=== PATIENT | male | born 1975 | race Two or more races ===

== ENCOUNTER 2020-06-04 14:21 | Emergency (ER) | payer OTHER ==
[~2020-06-04] VITALS: Ht 165.1 cm; Wt 102.0 kg
[2020-06-04] MEDS ORDERED: ASPIRIN 325 MG TABLET PO ONE (14:45)
[2020-06-04] MEDS ORDERED: NITROGLYCERIN SUBLINGUAL 0.4 MG BOTTLE OF 25. SL PRN (14:45)
--- NOTE | 2020-06-04 14:49 | EKG ---
[facility] [address] [place] [address] Test Date: 2020-06-04 Test Time: 14:43:19 Pat Name: YAMILETH YUEN Department: Room: Gender: [employer] Director: : 1975 Requested By: CRUZITO CHRISTOPHER Order Number: [id number] Reading MD: Measurements Intervals [place] Rate: 79 P: 49 ID: [id number] QRS: 2 QRSD: 94 T: 28 QT: 382 QTc: 439 Interpretive Statements SINUS RHYTHM NORMAL ECG RI6.02 No previous ECG available for comparison
--- NOTE | 2020-06-04 15:10 | RAD ---
INDICATION: Reason: chest pain lt side per pt. / Spl. Instructions: / History: COMPARISON: February 2009 FINDINGS: Single view of chest obtained. No definite focal airspace consolidation. Cardiac silhouette is unremarkable given portable technique . IMPRESSION: * No focal airspace consolidation or edema. Electronically signed by: Sameer Edmondson MD (06/04/2020 3:07 PM) [id number]
[2020-06-04] MEDS: MORPHINE SULFATE 4 MG/ML VIAL. IV/SQ PRN ×2 (15:24→19:42)
[2020-06-04 15:35] LABS: BASO # 0.1 x10^3/uL (0.0-0.2); BASO % 1 % (0-3); EOS # 0.2 x10^3/uL (0.0-0.7); EOS % 2 % (0-3); HEMATOCRIT 45.1 % (39.0-53.0); HEMOGLOBIN 14.7 g/dL (13.0-17.5); LYMPH # 2.2 x10^3/uL (1.0-4.8); LYMPH % 24 % (24-48); MEAN CORPUSCULAR HEMOGLOBIN 27 pg (25-35); MEAN CORPUSCULAR HGB CONC 33 g/dL (31-37); MEAN CORPUSCULAR VOLUME 84 fL (79-100); MONO # 0.8 x10^3/uL (0.0-1.1); MONO % 8 % (0-9); NEUT # 6.1 x10^3/uL (1.8-7.7); NEUT % 66 % (31-73); PLATELET COUNT 287 x10^3/uL (140-400); RED BLOOD COUNT 5.37 x10^6/uL (4.30-5.70); RED CELL DISTRIBUTION WIDTH 16.1 % (11.5-14.5); WHITE BLOOD COUNT 9.4 x10^3/uL (4.0-11.0)
[2020-06-04 15:49] LABS: D-DIMER < 0.27 ug/mlFEU (0.00-0.50)
[2020-06-04 15:56] LABS: CALCIUM 8.8 mg/dL (8.5-10.1); CREATININE 0.9 mg/dL (0.7-1.3); GFR 90.4; POTASSIUM 3.6 mmol/L (3.5-5.1)
[2020-06-04 16:05] LABS: ALBUMIN 3.8 g/dL (3.4-5.0); TOTAL BILIRUBIN 0.7 mg/dL (0.2-1.0); TOTAL PROTEIN 7.5 g/dL (6.4-8.2)
--- NOTE | 2020-06-04 16:53 | PDOC2 ---
AFIA ALVARADO LINING FINISHER 06/04/20 1653: CARDIAC CONSULT DATE OF CONSULT Date of Consult DATE: 06/04/20 TIME: 16:43 REASON FOR CONSULT Reason for Consult: Chest pain REFERRING PHYSICIAN Referring Physician: Bayron SOURCE Source: Chart review, Patient HISTORY OF PRESENT ILLNESS HISTORY OF PRESENT ILLNESS This is a pleasant 45 yo male admitted for complains of chest pain. Reports this as sharp and reproducible with palpation and deep breahing. This is mainly left lower sternal region. No SOA. No associated n/v. No anosmia, intractable coughing or ageusia. No fever or chills. No prior covid-19 exposure. Denies any CAD, VTE. He does take norvasc and intermittent ASA. 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 Denies any pain or SOA in relation to this. Had sexual activity 2 weeks ago with no CP nor SOA. No recent falls or injury. He does smoke tobacco but recreational drugs. does reports apnea episodes while asleep at night. No PND, orthopnea or any peripheral edema. PAST MEDICAL HISTORY Cardiovascular: HTN Pulmonary: No pertinent hx CENTRAL NERVOUS SYSTEM: Other (No pertinent history) GI: GERD Heme/Onc: No pertinent hx Hepatobiliary: No pertinent hx Psych: No pertinent hx Musculoskeletal: Osteoarthritis Rheumatologic: No pertinent hx Infectious disease: No pertinent hx ENT: No pertinent hx Renal/: No pertinent hx Endocrine: No pertinent hx Dermatology: No pertinent hx PAST SURGICAL HISTORY Past Surgical History: No pertinent history FAMILY HISTORY Family History noncontributory to CV SOCIAL HISTORY Smoke: 1 pack per day (>30 yrs) ALCOHOL: occassional Drugs: None Lives: with Family CURRENT MEDICATIONS CURRENT MEDICATIONS Current Medications Medications (Trade) Dose Ordered Sig/Smith Route PRN Reason Start Time Stop Time Status Last Admin Dose Admin Aspirin (Luis E Aspirin) 325 mg 1X ONCE PO 06/04/20 14:45 06/04/20 14:51 DC 06/04/20 15:23 Morphine Sulfate (Morphine Sulfate) 4 mg PRN Q15MIN PRN IV/SQ PAIN GREATER THAN 3/10 06/04/20 14:45 06/05/20 14:44 06/04/20 15:24 ALLERGIES ALLERGIES: Coded Allergies: Penicillins (Verified Allergy, Mild, Swelling, 06/04/20) ROS Review of System 14 point ROS evaluated with pertinent positives noted per HPI PHYSICAL EXAM General: Alert, Oriented X3, Cooperative, No acute distress HEENT: Atraumatic, Mucous membr. moist/pink Lungs: Clear to auscultation, Normal air movement Heart: Regular rate (SR), Normal S1, Normal S2, No murmurs Abdomen: Soft, No tenderness, Other (truncal obesity) Extremities: No cyanosis, No edema Skin: No breakdown, No significant lesion Neuro: Normal speech, Sensation intact Psych/Mental Status: Mental status NL, Mood NL MUSCULOSKELETAL: Osteoarthritic changes both hands VITALS/I&O VITALS/I&O: Vital Signs Date Time Temp Pulse Resp B/P (MAP) Pulse Ox O2 Delivery O2 Flow Rate FiO2 06/04/20 14:50 98.6 75 20 130/80 (97) 97 Room Air 98.6 LABS Lab: Laboratory Tests Test 06/04/20 15:10 White Blood Count 9.4 x10^3/uL (4.0-11.0) Red Blood Count 5.37 x10^6/uL (4.30-5.70) Hemoglobin 14.7 g/dL (13.0-17.5) Hematocrit 45.1 % (39.0-53.0) Mean Corpuscular Volume 84 fL (79-100) Mean Corpuscular Hemoglobin 27 pg (25-35) Mean Corpuscular Hemoglobin Concent 33 g/dL (31-37) Red Cell Distribution Width 16.1 % (11.5-14.5) H Platelet Count 287 x10^3/uL (140-400) Neutrophils (%) (Auto) 66 % (31-73) Lymphocytes (%) (Auto) 24 % (24-48) Monocytes (%) (Auto) 8 % (0-9) Eosinophils (%) (Auto) 2 % (0-3) Basophils (%) (Auto) 1 % (0-3) Neutrophils # (Auto) 6.1 x10^3/uL (1.8-7.7) Lymphocytes # (Auto) 2.2 x10^3/uL (1.0-4.8) Monocytes # (Auto) 0.8 x10^3/uL (0.0-1.1) Eosinophils # (Auto) 0.2 x10^3/uL (0.0-0.7) Basophils # (Auto) 0.1 x10^3/uL (0.0-0.2) Prothrombin Time 13.0 SEC (11.7-14.0) Prothrombin Time INR 1.0 (0.8-1.1) D-Dimer (Sherry) < 0.27 ug/mlFEU Sodium Level 140 mmol/L (136-145) Potassium Level 3.6 mmol/L (3.5-5.1) Chloride Level 102 mmol/L (98-107) Carbon Dioxide Level 26 mmol/L (21-32) Anion Gap 12 (6-14) Blood Urea Nitrogen 13 mg/dL (8-26) Creatinine 0.9 mg/dL (0.7-1.3) Estimated GFR (Cockcroft-Gault) 90.4 BUN/Creatinine Ratio 14 (6-20) Glucose Level 74 mg/dL (70-99) Calcium Level 8.8 mg/dL (8.5-10.1) Magnesium Level 2.0 mg/dL (1.8-2.4) Total Bilirubin 0.7 mg/dL (0.2-1.0) Aspartate Amino Transferase (AST) 20 U/L (15-37) Alanine Aminotransferase (ALT) 31 U/L (16-63) Alkaline Phosphatase 106 U/L (46-116) Troponin I Quantitative < 0.017 ng/mL (0.000-0.055) OZ-Nwh-U-Type Natriuretic Peptide 86 pg/mL (0-124) Total Protein 7.5 g/dL (6.4-8.2) Albumin 3.8 g/dL (3.4-5.0) Albumin/Globulin Ratio 1.0 (1.0-1.7) Thyroid Stimulating Hormone (TSH) 0.980 uIU/mL (0.358-3.74) Laboratory Tests 06/04/20 15:10 Laboratory Tests 06/04/20 15:10 ASSESSMENT/PLAN ASSESSMENT/PLAN 1. Atypical chest pain: suspect costochondritis. trop nml EKG SR without acute EKG changes. Doubt ACS. Very good METS 2. HTN: controlled 3. Suspect MADELAINE 4. Suspect COPD with tobaccoism 5 Obesity Recommendations 1. Continue home norvasc. 2. Smoking cessation. Will need outpt MADELAINE workup 3. Lidoderm to chest. May use NSAIDs with his home PPI 4. May DC if the next trop is negative. MADI OCONNOR MD 06/04/201810: CARDIAC CONSULT ASSESSMENT/PLAN ASSESSMENT/PLAN Patient seen and examined I agree with our nurse practitioners assessment as above. Atypical chest pain. No acute ischemic EKG changes. Trending troponin. Pain is most consistent with musculoskeletal pain. Hypertension. Controlled. Continue present treatment. COPD. Discontinue tobacco. Continue other present medications. AFIA ALVARADO APRN Jun 04, 2020 16:53 MADI OCONNOR MD Jun 04, 2020 18:11
[2020-06-04] MEDS ORDERED: LIDOCAINE (700MG/PATCH) PATCH. TD SCH (17:00)
--- NOTE | 2020-06-04 19:39 | PHYS DOC ---
Past Medical History Past Medical History: Hypertension Past Surgical History: No Surgical History Smoking Status: Current Every Day Smoker Alcohol Use: Occasionally General Adult EDM: Chief Complaint: CHEST PAIN HPI: HPI: Patient is a 45 year old male with history of hypertension presenting today complaining of 7 out of 10 sharp intermittent left-sided chest pain on inspiration and coughing, symptoms began at 5 AM this morning, patient denies chest pain working him up. He states he tried taking nitroglycerin with slight relief. Denies any fever, denies any concerns for COVID-19. Review of Systems: Review of Systems: Constitutional: Denies fever or chills. [] Eyes: Denies change in visual acuity. [] HENT: Denies nasal congestion or sore throat. [] Respiratory: Reports cough, denies shortness of breath. [] Cardiovascular: Reports left-sided chest pain GI: Denies abdominal pain, nausea, vomiting, bloody stools or diarrhea. [] : Denies dysuria. [] Musculoskeletal: Denies back pain or joint pain. [] Integument: Denies rash. [] Neurologic: Denies headache, focal weakness or sensory changes. [] Psychiatric: Denies depression or anxiety. [] Heart Score: HEART Score for Chest Pain: HEART Score for Chest Pain Response (Comments) Value History Slighlty/Non-Suspicious 0 ECG Normal 0 Age >45 - < 65 1 Risk Factors 1 or 2 Risk Factors 1 Troponin < Normal Limit 0 Total 2 Risk Factors: Risk Factors: DM, Current or recent (<one month) smoker, HTN, HLP, family history of CAD, obesity. Risk Scores: Score 0 - 3: 2.5% MACE over next 6 weeks - Discharge Home Score 4 - 6: 20.3% MACE over next 6 weeks - Admit for Clinical Observation Score 7 - 10: 72.7% MACE over next 6 weeks - Early Invasive Strategies Current Medications: Current Medications Medications (Trade) Dose Ordered Sig/Smith Start Time Stop Time Status Last Admin Dose Admin Aspirin (Luis E Aspirin) 325 mg 1X ONCE 06/04/20 14:45 06/04/20 14:51 DC 06/04/20 15:23 325 MG Lidocaine (Lidoderm) 1 patch DAILY 06/04/20 17:00 06/04/20 17:03 1 PATCH Miscellaneous (Lidoderm Patch Removal) 1 ea QHS 06/04/20 21:00 Morphine Sulfate (Morphine Sulfate) 4 mg PRN Q15MIN PRN 06/04/20 14:45 06/05/20 14:44 06/04/20 15:24 4 MG Nitroglycerin (Nitrostat) 0.4 mg PRN Q5MIN PRN 06/04/20 14:45 06/05/20 14:44 Allergies: Allergies: Allergies Coded Allergies Type Severity Reaction Last Updated Verified Penicillins Allergy Mild Swelling 06/04/20 Yes Physical Exam: PE: Constitutional: Well developed, well nourished, no acute distress, non-toxic appearance. [] HENT: Normocephalic, atraumatic, bilateral external ears normal, oropharynx moist, no oral exudates, nose normal. [] Eyes: PERRLA, EOMI, conjunctiva normal, no discharge. [] Neck: Normal range of motion, no tenderness, supple, no stridor. [] Cardiovascular:Heart rate regular rhythm, no murmur, reproducible chest pain on deep breaths Lungs & Thorax: Bilateral breath sounds clear to auscultation [] Abdomen: Bowel sounds normal, soft, no tenderness, no masses, no pulsatile masses. [] Skin: Warm, dry, no erythema, no rash. [] Back: No tenderness, no CVA tenderness. [] Extremities: No tenderness, no cyanosis, no clubbing, ROM intact, no edema. [] Neurologic: Alert and oriented X 3, normal motor function, normal sensory function, no focal deficits noted. [] Psychologic: Affect normal, judgement normal, mood normal. [] Current Patient Data: Labs: Laboratory Tests Test 06/04/20 15:10 06/04/20 18:43 White Blood Count 9.4 x10^3/uL (4.0-11.0) Red Blood Count 5.37 x10^6/uL (4.30-5.70) Hemoglobin 14.7 g/dL (13.0-17.5) Hematocrit 45.1 % (39.0-53.0) Mean Corpuscular Volume 84 fL (79-100) Mean Corpuscular Hemoglobin 27 pg (25-35) Mean Corpuscular Hemoglobin Concent 33 g/dL (31-37) Red Cell Distribution Width 16.1 % (11.5-14.5) H Platelet Count 287 x10^3/uL (140-400) Neutrophils (%) (Auto) 66 % (31-73) Lymphocytes (%) (Auto) 24 % (24-48) Monocytes (%) (Auto) 8 % (0-9) Eosinophils (%) (Auto) 2 % (0-3) Basophils (%) (Auto) 1 % (0-3) Neutrophils # (Auto) 6.1 x10^3/uL (1.8-7.7) Lymphocytes # (Auto) 2.2 x10^3/uL (1.0-4.8) Monocytes # (Auto) 0.8 x10^3/uL (0.0-1.1) Eosinophils # (Auto) 0.2 x10^3/uL (0.0-0.7) Basophils # (Auto) 0.1 x10^3/uL (0.0-0.2) Prothrombin Time 13.0 SEC (11.7-14.0) Prothrombin Time INR 1.0 (0.8-1.1) D-Dimer (Sherry) < 0.27 ug/mlFEU Sodium Level 140 mmol/L (136-145) Potassium Level 3.6 mmol/L (3.5-5.1) Chloride Level 102 mmol/L (98-107) Carbon Dioxide Level 26 mmol/L (21-32) Anion Gap 12 (6-14) Blood Urea Nitrogen 13 mg/dL (8-26) Creatinine 0.9 mg/dL (0.7-1.3) Estimated GFR (Cockcroft-Gault) 90.4 BUN/Creatinine Ratio 14 (6-20) Glucose Level 74 mg/dL (70-99) Calcium Level 8.8 mg/dL (8.5-10.1) Magnesium Level 2.0 mg/dL (1.8-2.4) Total Bilirubin 0.7 mg/dL (0.2-1.0) Aspartate Amino Transferase (AST) 20 U/L (15-37) Alanine Aminotransferase (ALT) 31 U/L (16-63) Alkaline Phosphatase 106 U/L (46-116) Troponin I Quantitative < 0.017 ng/mL (0.000-0.055) < 0.017 ng/mL (0.000-0.055) BY-Ysl-G-Type Natriuretic Peptide 86 pg/mL (0-124) Total Protein 7.5 g/dL (6.4-8.2) Albumin 3.8 g/dL (3.4-5.0) Albumin/Globulin Ratio 1.0 (1.0-1.7) Thyroid Stimulating Hormone (TSH) 0.980 uIU/mL (0.358-3.74) Laboratory Tests 06/04/20 15:10 Laboratory Tests 06/04/20 15:10 Vital Signs: Vital Signs Date Time Temp Pulse Resp B/P (MAP) Pulse Ox O2 Delivery O2 Flow Rate FiO2 06/04/20 17:05 70 18 121/74 (90) 99 Room Air 06/04/20 14:50 98.6 98.6 EKG: EK interpreted by Dr. Turner sinus rhythm heart rate 79 no STEMI [] Radiology/Procedures: Radiology/Procedures: []PROCEDURE: PORTABLE CHEST 1V INDICATION: Reason: chest pain lt side per pt. / Spl. Instructions: / History: COMPARISON: February 2009 FINDINGS: Single view of chest obtained. No definite focal airspace consolidation. Cardiac silhouette is unremarkable given portable technique. IMPRESSION: * No focal airspace consolidation or edema. Electronically signed by: Cynthia Steen MD (06/04/2020 3:07 PM) [id number] DICTATED and SIGNED BY: CYNTHIA STEEN MD DATE: 06/04/20 [id number] 0 Course & Med Decision Making: Course & Med Decision Making Pertinent Labs and Imaging studies reviewed. (See chart for details) This is a 45-year-old male patient presenting to the ED today complaining of chest pain that began this morning. EKG is negative, 2 troponins 3 hours apart are negative, CBC CMP with no acute findings. Chest x-ray is negative. Consulted with jj PERFORATOR TYPIST for cardiology who came and evaluated patient. He stated if the second troponin is normal he can go home. Discharge to home. Follow-up with his own PCP as well as stockroom selector provided Dragon Disclaimer: Dragon Disclaimer: This electronic medical record was generated, in whole or in part, using a voice recognition dictation system. Departure Departure Impression: Primary Impression: Chest pain Qualified Codes: R07.9 - Chest pain, unspecified Disposition: 01 DC HOME SELF CARE/HOMELESS Condition: STABLE Referrals: NO PCP (PCP) BLANCA GERBER MD follow up next week Patient Instructions: Chest Pain (Nonspecific), [id number] Additional Instructions: You were seen for chest pain, please follow-up with the provided stockroom selector ne xt week. Come back to the ED at any point symptoms worsen. CRUZITO CHRISTOPHER APRN Jun 04, 2020 19:39
[2020-06-04 19:45] VITALS: BP 135/83
[2020-06-04] MEDS ORDERED: PATCH REMOVAL. MC SCH (21:00)
== END 2020-06-04 19:52 | disposition home or self-care (01) ==
LOC: ER 14:21
DX: R07.89 Other chest pain (principal); R05 Cough; I10 Essential (primary) hypertension; F17.200 Nicotine dependence, unspecified, uncomplicated; Z88.0 Allergy status to penicillin
CPT/HCPCS: 36415; 71045; 80053; 83735; 83880; 84443; 84484; 85025; 85379; 85610; 93005; 96374; 96376; 99285; J2270

== ENCOUNTER 2020-07-22 10:49 | Emergency (ER) | payer OTHER ==
[~2020-07-22] VITALS: Ht 167.6 cm; Wt 102.0 kg
[2020-07-22] MEDS ORDERED: KETOROLAC 60 MG/2 ML VIAL. IM ONE (11:30)
[2020-07-22] MEDS ORDERED: methylPREDNISolone SOD SUCC PF 125 MG/2 ML VIAL. IM ONE (11:30)
--- NOTE | 2020-07-22 11:58 | PHYS DOC ---
Past Medical History Past Medical History: Hypertension Past Surgical History: No Surgical History Smoking Status: Current Every Day Smoker Alcohol Use: Occasionally General Adult EDM: Chief Complaint: SHOUDLER HPI: HPI: Patient is a 45 year old male who presented to ER due to right shoulder pain started this morning. Patient said he got up this morning, get ready to work, when he tried to put on his jacket, he felt that he moved his right shoulder in the wrong way causing pain. He was at work, try to replace a tire, when he tried to pull to tie off the wheel, he starlted havingsevere right shoulder pain. The pain is worse with movement of his right shoulder, no numbness or weakness in right upper extremity. Review of Systems: Review of Systems: Constitutional: Denies fever or chills. [] Eyes: Denies change in visual acuity. [] HENT: Denies nasal congestion or sore throat. [] Respiratory: Denies cough or shortness of breath. [] Cardiovascular: Denies chest pain or edema. [] GI: Denies abdominal pain, nausea, vomiting, bloody stools or diarrhea. [] : Denies dysuria. [] Musculoskeletal: Positive for right shoulder pain. Integument: Denies rash. [] Neurologic: Denies headache, focal weakness or sensory changes. [] Endocrine: Denies polyuria or polydipsia. [] Lymphatic: Denies swollen glands. [] Psychiatric: Denies depression or anxiety. [] Heart Score: C/O Chest Pain: N/A Risk Factors: Risk Factors: DM, Current or recent (<one month) smoker, HTN, HLP, family history of CAD, obesity. Risk Scores: Score 0 - 3: 2.5% MACE over next 6 weeks - Discharge Home Score 4 - 6: 20.3% MACE over next 6 weeks - Admit for Clinical Observation Score 7 - 10: 72.7% MACE over next 6 weeks - Early Invasive Strategies Current Medications: Current Medications Medications (Trade) Dose Ordered Sig/Smith Start Time Stop Time Status Last Admin Dose Admin Ketorolac Tromethamine (Toradol Im) 60 mg 1X ONCE 07/22/20 11:30 07/22/20 11:31 DC Methylprednisolone Sodium Succinate (SOLU-Medrol 125MG VIAL) 125 mg 1X ONCE 07/22/20 11:30 07/22/20 11:31 DC Allergies: Allergies: Allergies Coded Allergies Type Severity Reaction Last Updated Verified Penicillins Allergy Mild Swelling 06/04/20 Yes Physical Exam: PE: Constitutional: Well developed, well nourished, no acute distress, non-toxic appearance. [] HENT: Normocephalic, atraumatic, bilateral external ears normal, oropharynx moist, no oral exudates, nose normal. [] Eyes: PERRLA, EOMI, conjunctiva normal, no discharge. [] Neck: Normal range of motion, no tenderness, supple, no stridor. [] Cardiovascular:Heart rate regular rhythm, no murmur [] Lungs & Thorax: Bilateral breath sounds clear to auscultation [] Abdomen: Bowel sounds normal, soft, no tenderness, no masses, no pulsatile masses. [] Skin: Warm, dry, no erythema, no rash. [] Back: No tenderness, no CVA tenderness. [] Extremities: Right shoulder with full range of motion with pain, no deformity, no swelling. Neurologic: Alert and oriented X 3, normal motor function, normal sensory function, no focal deficits noted. [] Psychologic: Affect normal, judgement normal, mood normal. [] Current Patient Data: Vital Signs: Vital Signs Date Time Temp Pulse Resp B/P (MAP) Pulse Ox O2 Delivery O2 Flow Rate FiO2 07/22/20 10:55 98.7 96 18 137/88 (104) 98 Room Air 98.7 EKG: EKG: [] Radiology/Procedures: Radiology/Procedures: [][facility] [address] [place], [place] [id number] IMAGING REPORT Signed PATIENT: YAMILETH YUEN AACCOUNT: [id number] : 1975 LOCATION: ER AGE: 45 SEX: M EXAM STATUS: REG ER ORD. PHYSICIAN: MERRILL AVENDAÑO DO REASON: right shoulder pain,pt injured shoulder changing tire. PROCEDURE: SHOULDER 2+V RIGHT XR SHOULDER_RIGHT 2+ VIEWS History: Reason: right shoulder pain,pt injured shoulder changing tire. / Spl. Instructions: / History: Technique: 3 views right shoulder Comparison: None. Findings: Normal alignment of the right glenohumeral and acromioclavicular joints. No fracture. Soft tissues unremarkable. Impression: 1. No acute osseous abnormality. Electronically signed by: Garo Shahid DO (07/22/2020 12:24 PM) [id number] DICTATED and SIGNED BY: GARO SHAHID DO DATE: 07/22/20 [id number] 0 Course & Med Decision Making: Course & Med Decision Making Pertinent Labs and Imaging studies reviewed. (See chart for details) [] Dragon Disclaimer: Dragon Disclaimer: This electronic medical record was generated, in whole or in part, using a voice recognition dictation system. Departure Departure Impression: Primary Impression: Sprain of shoulder, right Disposition: HOME / SELF CARE / HOMELESS Condition: STABLE Referrals: NO PCP (PCP) Please follow up with your doctor for outpatient MRI OF YOUR RIGHT SHOULDER NEXT WEEK. Patient Instructions: Shoulder Sprain Additional Instructions: Please follow up with [facility] this week. [address], [address] [place] [address] Phone number: [phone] Scripts Prednisone (PREDNISONE) 20 Mg Tablet 1 TAB PO DAILY for 7 Days, #7 TAB Prov: MERRILL AVENDAÑO DO 07/22/20 Naproxen Sodium (ANAPROX DS) 550 Mg Tablet 1 TAB PO BID PRN for PAIN for 15 Days, #30 TAB 0 Refills Prov: MERRILL AVENDAÑO DO 07/22/20 MERRILL AVENDAÑO DO Jul 22, 2020 11:58
--- NOTE | 2020-07-22 12:27 | RAD ---
XR SHOULDER_RIGHT 2+ VIEWS History: Reason: right shoulder pain,pt injured shoulder changing tire. / Spl. Instructions: / Histo ry: Technique: 3 views right shoulder Comparison: None. Findings: Normal alignment of the right glenohumeral and acromioclavicular joints. No fracture. Soft tissues un remarkable. Impression: 1. No acute osseous abnormality. Electronically signed by: Garo Deng DO (07/22/2020 12:24 PM) [id number]
[2020-07-22] MEDS ORDERED: PRED20TA PO (12:39)
[2020-07-22] MEDS ORDERED: NAPR-682 PO (12:39)
[2020-07-22 12:50] VITALS: BP 144/77
[2020-07-22] MEDS ORDERED: HYDROcodone/APAP 5/325MG 1 TAB TABLET PO ONE (13:00)
== END 2020-07-22 13:27 | disposition home or self-care (01) ==
LOC: ER 10:49
DX: S43.401A Unspecified sprain of right shoulder joint, initial encounter (principal); I10 Essential (primary) hypertension; F17.200 Nicotine dependence, unspecified, uncomplicated; Z88.0 Allergy status to penicillin; X50.1XXA Overexertion from prolonged static or awkward postures, initial encounter; Y93.89 Activity, other specified; Y92.89 Other specified places as the place of occurrence of the external cause; Y99.8 Other external cause status
CPT/HCPCS: 73030; 96372; 99284; A4565; J1885; J2930

== ENCOUNTER 2021-03-26 15:00 | Emergency (ER) | payer OTHER ==
[~2021-03-26] VITALS: Ht 165.1 cm; Wt 95.3 kg
[~2021-03-26 15:00] MED LIST: NAPR-682 PO; PRED20TA PO
[2021-03-26] MEDS: FLUORESCEIN OPHTH TEST STRIP. OD ONE ×2 (15:42→15:44)
[2021-03-26] MEDS: TETRACAINE 0.5% OPHTH SOLUTION 4ML BOTTLE. OD ONE ×2 (15:42→15:44)
[2021-03-26] MEDS ORDERED: ERYT1OIN3 OD (16:04)
--- NOTE | 2021-03-26 16:04 | PHYS DOC ---
Past Medical History Past Medical History: Hypertension Past Surgical History: No Surgical History Smoking Status: Current Every Day Smoker Alcohol Use: Occasionally General Adult EDM: Chief Complaint: FOREIGN BODY/EYES HPI: HPI: Patient is a 46-year-old male that presents today with right eye pain, swelling and redness. Patient states on Monday when it was extremely windy he was trying to put a large truck up on a neah and he said he felt something go into his eye and he kept rubbing it. Patient does wear glasses but not safety glasses. Patient states over the last 2 days the pain and swelling has gotten worse, he has noticed some drainage from that area as well. Patient states that he went to an masonry inspector for routine eye exam 2 weeks ago and has gotten a new prescription but has not received those glasses at this time. Patient states his Last tetanus shot was 2 years ago Review of Systems: Review of Systems: Constitutional: Denies fever or chills. [] Eyes: Right eye pain, swelling, redness HENT: Denies nasal congestion or sore throat. [] Respiratory: Denies cough or shortness of breath. [] Cardiovascular: Denies chest pain or edema. [] GI: Denies abdominal pain, nausea, vomiting, bloody stools or diarrhea. [] : Denies dysuria. [] Musculoskeletal: Denies back pain or joint pain. [] Integument: Denies rash. [] Neurologic: Denies headache, focal weakness or sensory changes. [] Endocrine: Denies polyuria or polydipsia. [] Lymphatic: Denies swollen glands. [] Psychiatric: Denies depression or anxiety. [] Heart Score: C/O Chest Pain: N/A Risk Factors: Risk Factors: DM, Current or recent (<one month) smoker, HTN, HLP, family history of CAD, obesity. Risk Scores: Score 0 - 3: 2.5% MACE over next 6 weeks - Discharge Home Score 4 - 6: 20.3% MACE over next 6 weeks - Admit for Clinical Observation Score 7 - 10: 72.7% MACE over next 6 weeks - Early Invasive Strategies Current Medications: Current Medications Medications (Trade) Dose Ordered Sig/Smith Start Time Stop Time Status Last Admin Dose Admin Fluorescein Sodium (Ful-Danielle) 1 strip 1X ONCE 03/26/21 16:00 03/26/21 16:01 03/26/21 15:44 1 STRIP Tetracaine HCl (Tetracaine) 1 drop 1X ONCE 03/26/21 16:00 03/26/21 16:01 03/26/21 15:44 1 DROP Allergies: Allergies: Allergies Coded Allergies Type Severity Reaction Last Updated Verified Penicillins Allergy Mild Swelling 03/26/21 Yes Physical Exam: PE: Constitutional: Well developed, well nourished, no acute distress, non-toxic appearance. [] HENT: Normocephalic, atraumatic, bilateral external ears normal, oropharynx moist, no oral exudates, nose normal. [] Eyes: PERRLA, EOMI, conjunctive a is red, swelling of the lids is noted, top lid was inverted no foreign bodies noted, lower lid no foreign bodies noted with inspection completed. Fluorescein used to enhance the eye after tetracaine 0.5% drops were placed. Camp lamp to use for inspection of the eye for any abnormalities to areas of abrasion noted one on the conjunctivo below the lid on the lower lid. Also 1 at the 3:00 area of the of the cornea. Neck: Normal range of motion, no tenderness, supple, no stridor. [] Cardiovascular:Heart rate regular rhythm, no murmur [] Lungs & Thorax: Bilateral breath sounds clear to auscultation [] Abdomen: Bowel sounds normal, soft, no tenderness, no masses, no pulsatile masses. [] Skin: Warm, dry, no erythema, no rash. [] Back: No tenderness, no CVA tenderness. [] Extremities: No tenderness, no cyanosis, no clubbing, ROM intact, no edema. [] Neurologic: Alert and oriented X 3, normal motor function, normal sensory function, no focal deficits noted. [] Psychologic: Affect normal, judgement normal, mood normal. [] Current Patient Data: Vital Signs: Vital Signs Date Time Temp Pulse Resp B/P (MAP) Pulse Ox O2 Delivery O2 Flow Rate FiO2 03/26/21 15:30 98.4 79 18 142/98 (113) 100 Room Air 98.4 EKG: EKG: [] Radiology/Procedures: Radiology/Procedures: [] Course & Med Decision Making: Course & Med Decision Making Pertinent Labs and Imaging studies reviewed. (See chart for details) We will send patient home with erythromycin ointment to be placed in the eye 6 times daily for the next 5 days. Patient is to follow-up with his masonry inspector or Dr. Carrion the critical care rn here train reservation clerk for further management on Monday. Patient is to return to the emergency department if vision changes in any way over the . Angus Disclaimer: Angus Disclaimer: This electronic medical record was generated, in whole or in part, using a voice recognition dictation system. Departure Departure Impression: Primary Impression: Corneal abrasion, right Qualified Codes: S05.01XA - Injury of conjunctiva and corneal abrasion without foreign body, right eye, initial encounter Disposition: HOME / SELF CARE / HOMELESS Condition: STABLE Referrals: NO PCP (PCP) CALLY CARRION MD Patient Instructions: Eye - Corneal Abrasion Additional Instructions: Instill erythromycin ointment quarter inch into right eye 6 times daily for 5 days Tylenol and/or ibuprofen as needed for pain Avoid rubbing the eye if eye becomes painful may put a cool washcloth on eye to help with swelling and pain Follow-up with your primary eye doctor or Dr. Carrion for further management on Monday of your corneal abrasion Return to the emergency department if you have vision changes in any way, pain does not improve by Monday or worsens, you notice increased drainage from the eye that is green in color. Or any other concerns you may have with your eye. Scripts Erythromycin Base (Erythromycin) 1 Gm Oint...g. 0.25 GENTRY OD 6 for corneal abrasion for 7 Days, #1 MISC Prov: [facility]CE[facility] CL[facility] 03/26/21 CASTILLO CONROY APRN Mar 26, 2021 16:04
[2021-03-26 16:14] VITALS: BP 152/85
[2021-03-26] MEDS ORDERED: ERYTHROMYCIN 0.5% OPHTH OINTMENT 1GM TUBE. OD ONE (16:15)
== END 2021-03-26 16:17 | disposition home or self-care (01) ==
LOC: ER 15:00
DX: S05.01XA Injury of conjunctiva and corneal abrasion without foreign body, right eye, initial encounter (principal); I10 Essential (primary) hypertension; F17.200 Nicotine dependence, unspecified, uncomplicated; X58.XXXA Exposure to other specified factors, initial encounter; Y93.89 Activity, other specified; Y92.89 Other specified places as the place of occurrence of the external cause; Y99.8 Other external cause status
CPT/HCPCS: 99284

== ENCOUNTER 2021-04-19 05:49 | Observation (INO) | payer OTHER ==
[~2021-04-19] VITALS: Ht 165.1 cm; Wt 100.0 kg
[~2021-04-19 05:49] MED LIST changes: +ERYT1OIN3 OD
--- NOTE | 2021-04-19 06:05 | PHYS DOC ---
Past Medical History Past Medical History: Hypertension Past Surgical History: No Surgical History Smoking Status: Current Every Day Smoker Alcohol Use: Occasionally General Adult HPI: HPI: Patient is a 46 year old male who presents with chest pain which began several hours ago. The pain is left-sided, feels like pressure, radiates to his left shoulder and left upper back. He reports mild shortness of breath. He also describes some sharp pain. He denies pleuritic pain. He denies cough or hemoptysis. He denies lower extremity pain or swelling. He reports mild nausea but no vomiting. He denies abdominal pain. He denies dizziness or diaphoresis. The pain was intermittent but now it is constant for the past couple of hours. He admits to using cocaine earlier today. He snorts cocaine intermittently, he is done this for several years. He reports drinking alcohol on the weekends. He denies any heavy alcohol use. He reports he has history of similar chest pain. He and his significant other indicate that he was told he had a heart attack 3 years ago while living in [place]. He never followed up with a c ardiologist, he was never given medications for this, he reports having no stents. He does not have a finishing trimmer here. He denies recent travel, surgery, hospitalization. He is not vaccinated against COVID. He does report having several days of nonproductive cough and malaise. No reported fever. No reported hemoptysis. Review of Systems: Review of Systems: Constitutional: Denies fever or chills. [] HENT: Denies nasal congestion or sore throat. [] Respiratory: Dry cough, mild dyspnea. No wheezing. No hemoptysis Cardiovascular: Reports chest pain, as per HPI. Denies peripheral edema. GI: Denies abdominal pain. Reports nausea but denies vomiting. Musculoskeletal: Left upper back pain. Denies joint pain or swelling. Integument: Denies rash. [] Neurologic: Denies headache, focal weakness or sensory changes. [] Psychiatric: Anxiety as it pertains to current clinical condition and symptoms. Cocaine and alcohol use. [] Heart Score: C/O Chest Pain: Yes HEART Score for Chest Pain: HEART Score for Chest Pain Response (Comments) Value History Moderately Suspicious 1 ECG Normal 0 Age >45 - < 65 1 Risk Factors 1 or 2 Risk Factors 1 Total 3 Risk Factors: Risk Factors: DM, Current or recent (<one month) smoker, HTN, HLP, family history of CAD, obesity. Risk Scores: Score 0 - 3: 2.5% MACE over next 6 weeks - Discharge Home Score 4 - 6: 20.3% MACE over next 6 weeks - Admit for Clinical Observation Score 7 - 10: 72.7% MACE over next 6 weeks - Early Invasive Strategies Allergies: Allergies: Allergies Coded Allergies Type Severity Reaction Last Updated Verified Penicillins Allergy Mild Swelling 03/26/21 Yes Physical Exam: PE: Constitutional: Well developed, well nourished, no acute distress, non-toxic appearance. [] HENT: Normocephalic, atraumatic Eyes: Conjunctiva normal, no discharge. [] Neck: Normal range of motion, no tenderness, supple, no stridor. [] Cardiovascular:Heart rate regular rhythm, +2 radial and +2 posterior tibial pulses bilaterally, warm and well-perfused, no cyanosis, no peripheral edema Lungs & Thorax: Lungs are clear to auscultation bilaterally without rales, rhonchi, wheezes, equal chest rise, no tachypnea, no stridor, no evidence of respiratory distress. Palpation of the mid and left chest wall reproduces pain. No palpable crepitus or step-offs. Abdomen: Abdomen is soft, obese, nondistended, nontender to palpation, normal bowel sounds. No palpable masses organomegaly Skin: Warm, dry, no erythema, no rash. [] Back: No tenderness, no CVA tenderness. [] Extremities: No tenderness, no cyanosis, no clubbing, ROM intact, no edema. No calf tenderness. Neurologic: Alert and oriented X 3, normal motor function, normal sensory function, no focal deficits noted. [] Psychologic: He is relatively anxious, he is cooperative [] EKG: EKG: EKG is interpreted at 0606 Rhythm is sinus Rate is 97 bpm Levasy is normal No STEMI Radiology/Procedures: Radiology/Procedures: IMAGING REPORT Signed PATIENT: YAMILETH RAWLS AACCOUNT: [id number] : 1975 LOCATION: ER AGE: 46 SEX: M EXAM STATUS: REG ER ORD. PHYSICIAN: MIGUEL ANGEL FATIMA DO REASON: chest pain PROCEDURE: PORTABLE CHEST 1V XR CHEST 1V History: Reason: chest pain / Spl. Instructions: / History: Comparison: June 04, 2020 Findings: No consolidation or pleural effusion. Normal heart size. No pneumothorax. Impression: 1. No acute cardiopulmonary process. Electronically signed by: Garo Deng DO (04/19/2021 6:44 AM) [facility] DICTATED and SIGNED BY: GARO DENG DO DATE: 04/19/21 [id number] IMAGING REPORT Signed PATIENT: YAMILETH RAWLS AACCOUNT: [id number] : 1975 LOCATION: ER AGE: 46 SEX: M EXAM STATUS: REG ER ORD. PHYSICIAN: MIGUEL ANGEL FATIMA DO REASON: chest pain, radiating to back, dissection study PROCEDURE: CT ANGIOGRAPHY CHEST CTA chest with contrast dated 04/19/2021. COMPARISON: None. Clinical data indication: Chest pain. Rule out dissection TECHNIQUE: Diffuse axial imaging the chest performed following the intravenous administration of 90 cc Omnipaque 350. Study was performed as dedicated CTA with thin cut coronal and sagittal MIPS reconstruction and 3-D rotational reconstruction. One or more of the following individualized dose reduction techniques were utilized for this examination: 1. Automated exposure control 2. Adjustment of the mA and/or kV according to patient size 3. Use of iterative reconstruction technique FINDINGS: Contrast bolus is adequate. Aortic arch is normal in caliber. No intimal flap or periaortic fluid collection. Descending thoracic aorta normal in caliber. Heart size is upper limits of normal. No pericardial effusion. Coronary artery calcifications. No mediastinal, hilar or axillary lymphadenopathy. Thyroid gland is unremarkable. Central airways are patent. Diffuse bronchial wall thickening. There is some dependent patchy opacity in the lower lobes, likely atelectasis. No consolidation or pleural effusion. No pneumothorax. Limited images of the upper abdomen show diffuse low-density of the liver compatible with fatty infiltration. No apparent mass. Bone window show no acute findings. Multilevel spondylosis. IMPRESSION: 1. No acute abnormality of chest. No evidence of aortic dissection. 2. Dependent groundglass opacity in the lower lobes, likely atelectasis. 3. Mild fatty infiltration of the liver. Electronically signed by: Seymour Das MD (04/19/2021 8:20 AM) [facility] DICTATED and SIGNED BY: SEYMOUR DAS MD DATE: 04/19/21 [id number] Course & Med Decision Making: Course & Med Decision Making Pertinent Labs and Imaging studies reviewed. (See chart for details) P.o. aspirin given. Sublingual nitroglycerin and IV Ativan resolved his pain completely. He is resting comfortably. Vital signs are stable. No evidence of dissection on CT angiogram of the chest. First troponin is negative. The patient reports having a previous history of NC, though I am unable to obtain any records from an outside hospital in [place] from over 3 years ago. I do recommend hospitalization, serial troponin exams and cardiology consultation. The patient is comfortable with this plan of care. He is excepted for admission by Dr. Bowling. Angus Disclaimer: Angus Disclaimer: This electronic medical record was generated, in whole or in part, using a voice recognition dictation system. Departure Departure Impression: Primary Impression: Chest pain Additional Impression: Cocaine abuse Disposition: ADMITTED INPATIENT Admitting Physician: PATY (Dr. Bowling) Condition: STABLE Referrals: NO PCP (PCP) MIGUEL ANGEL FATIMA DO Apr 19, 2021 06:05
[2021-04-19] MEDS ORDERED: NITROGLYCERIN SUBLINGUAL 0.4 MG BOTTLE OF 25. SL PRN (06:15)
[2021-04-19] MEDS ORDERED: ONDANSETRON PF 4 MG/2 ML VIAL. IVP ONE (06:15)
[2021-04-19] MEDS ORDERED: ASPIRIN CHEWABLE 81 MG TABLET. PO ONE (06:15)
[2021-04-19] MEDS ORDERED: IV NORMAL SALINE 1000ML BAG 1,000 ML IV ONE ×2 (06:15→08:30)
[2021-04-19 06:25] LABS: BASO # 0.1 x10^3/uL (0.0-0.2); BASO % 1 % (0-3); EOS # 0.2 x10^3/uL (0.0-0.7); EOS % 1 % (0-3); HEMATOCRIT 48.3 % (39.0-53.0); HEMOGLOBIN 16.1 g/dL (13.0-17.5); LYMPH # 2.1 x10^3/uL (1.0-4.8); LYMPH % 14 % (24-48); MEAN CORPUSCULAR HEMOGLOBIN 28 pg (25-35); MEAN CORPUSCULAR HGB CONC 33 g/dL (31-37); MEAN CORPUSCULAR VOLUME 83 fL (79-100); MONO # 0.9 x10^3/uL (0.0-1.1); MONO % 6 % (0-9); NEUT % 79 % (31-73); PLATELET COUNT 338 x10^3/uL (140-400); RED BLOOD COUNT 5.81 x10^6/uL (4.30-5.70); WHITE BLOOD COUNT 15.3 x10^3/uL (4.0-11.0)
--- NOTE | 2021-04-19 06:47 | RAD ---
XR CHEST 1V History: Reason: chest pain / Spl. Instructions: / History: Comparison: June 04, 2020 Findings: No consolidation or pleural effusion. Normal heart size. No pneumothorax. Impression: 1. No acute cardiopulmonary process. Electronically signed by: Garo Deng DO (04/19/2021 6:44 AM) [facility]
[2021-04-19 06:56] LABS: ALBUMIN 3.7 g/dL (3.4-5.0); ALBUMIN/GLOBULIN RATIO 0.8 (1.0-1.7); CALCIUM 8.6 mg/dL (8.5-10.1); CREATININE 0.8 mg/dL (0.7-1.3); GFR 103.2; MAGNESIUM 2.1 mg/dL (1.8-2.4); POTASSIUM 3.7 mmol/L (3.5-5.1); TOTAL BILIRUBIN 0.7 mg/dL (0.2-1.0); TOTAL PROTEIN 8.3 g/dL (6.4-8.2)
[2021-04-19] MEDS ORDERED: IOHEXOL 350 MG/ML 100 ML VIAL. IV ONE (07:45)
[2021-04-19] MEDS ORDERED: CONTRAST GIVEN. MC PRN (08:00)
--- NOTE | 2021-04-19 08:22 | RAD ---
CTA chest with contrast dated 04/19/2021. COMPARISON: None. Clinical data indication: Chest pain. Rule out dissection TECHNIQUE: Diffuse axial imaging the chest performed following the intravenous administration of 90 cc Omnipaque 350. Study was performed as dedicated CTA with thin cut coronal and sagittal MIPS reconstruction and 3-D rotational reconstruction. One or more of the following individualized dose reduction techniques were utilized for this examinat ion: 1. Automated exposure control 2. Adjustment of the mA and/or kV according to patient size 3. Use of iterative reconstruction technique FINDINGS: Contrast bolus is adequate. Aortic arch is normal in caliber. No intimal flap or periaortic fluid col lection. Descending thoracic aorta normal in caliber. Heart size is upper limits of normal. No perica rdial effusion. Coronary artery calcifications. No mediastinal, hilar or axillary lymphadenopathy. Th yroid gland is unremarkable. Central airways are patent. Diffuse bronchial wall thickening. There is some dependent patchy opacity in the lower lobes, likely atelectasis. No consolidation or pleural effusion. No pneumothorax. Limited images of the upper abdomen show diffuse low-density of the liver compatible with fatty infil tration. No apparent mass. Bone window show no acute findings. Multilevel spondylosis. IMPRESSION: 1. No acute abnormality of chest. No evidence of aortic dissection. 2. Dependent groundglass opacity in the lower lobes, likely atelectasis. 3. Mild fatty infiltration of the liver. Electronically signed by: Seymour Das MD (04/19/2021 8:20 AM) [facility]
[2021-04-19] MEDS ORDERED: ONDANSETRON PF 4 MG/2 ML VIAL. IVP PRN (08:30)
[2021-04-19] MEDS ORDERED: ACETAMINOPHEN 325 MG TABLET. PO PRN (08:30)
[2021-04-19 10:15] LABS: BARBITURATES NEG (NEG); BENZODIAZEPINES NEG (NEG); BILIRUBIN,URINE NEGATIVE (NEG); CANNABINOIDS NEG (NEG); CLARITY,URINE CLEAR; COCAINE POS (NEG); COLOR,URINE YELLOW; METHADONE NEG (NEG); NITRITE,URINE NEGATIVE (NEG); OPIATES NEG (NEG); PH,URINE 5.5 (<5.0-8.0); PHENCYCLIDINE NEG (NEG); PROTEIN,URINE NEGATIVE (NEG-TRACE); UROBILINOGEN,URINE 0.2 mg/dL (0.2 mg/dL)
[2021-04-19 10:25] LABS: AMPHETAMINE/METHAMPHETAMINE NEG (NEG)
[2021-04-19 10:45] LABS: BACTERIA,URINE 0 /HPF (0-FEW); RBC,URINE 0 /HPF (0-2); WBC,URINE OCC /HPF (0-4)
--- NOTE | 2021-04-19 12:44 | PDOC2 ---
CARDIAC CONSULT DATE OF CONSULT Date of Consult DATE: 04/19/21 TIME: 12:40 REASON FOR CONSULT Reason for Consult: Chest pain REFERRING PHYSICIAN Referring Physician: Dr. Obregon SOURCE Source: Chart review, Patient HISTORY OF PRESENT ILLNESS HISTORY OF PRESENT ILLNESS This is a 46 yo male who presented secondary to chest pain. Patient reports he work up with stabbing pain in his central chest about 4:30 this morning. Seemed to go through to his back. Was much worse with deep breathing. [place] short of breath due to the pain. Pain persisted so he came into the ED for further evaluation and treatment. Patient does admit to using cocaine yesterday. Pain in now resolved. He reports similar pain 10 years ago in [place]. Reports having a "mild heart attack" at that time. Under went sonogram of the heart and stress testing for which he reports was normal. States "everything was okay". Was started on PPI at this time. 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 Is able to perform these without limitations or chest pain. PAST MEDICAL HISTORY Cardiovascular: HTN, NE Pulmonary: No pertinent hx GI: GERD Heme/Onc: No pertinent hx PAST SURGICAL HISTORY Past Surgical History: No pertinent history FAMILY HISTORY Family History: Hypertension SOCIAL HISTORY Smoke: <1 pack per day ALCOHOL: none Drugs: Cocaine (occasional ) Lives: with Family CURRENT MEDICATIONS CURRENT MEDICATIONS Current Medications Medications (Trade) Dose Ordered Sig/Smith Route PRN Reason Start Time Stop Time Status Last Admin Dose Admin Lorazepam (Ativan Inj) 1 mg 1X ONCE IVP 04/19/21 06:15 04/19/21 06:16 DC 04/19/21 08:02 Aspirin (Aspirin Chewable) 324 mg 1X ONCE PO 04/19/21 06:15 04/19/21 06:16 DC 04/19/21 08:01 Ondansetron HCl (Zofran) 4 mg 1X ONCE IVP 04/19/21 06:15 04/19/21 06:16 DC 04/19/21 08:01 Nitroglycerin (Nitrostat) 0.4 mg PRN Q5MIN PRN SL CHEST PAIN 04/19/21 06:15 04/19/21 08:02 Sodium Chloride 1,000 ml @ 1,000 mls/hr 1X ONCE IV 04/19/21 06:15 04/19/21 07:14 DC 04/19/21 08:01 Iohexol (Omnipaque 350 Mg/ml) 90 ml 1X ONCE IV 04/19/21 07:45 04/19/21 07:46 DC 04/19/21 08:04 Sodium Chloride 1,000 ml @ 75 mls/hr 1X ONCE IV 04/19/21 08:30 04/19/21 21:49 04/19/21 09:41 ALLERGIES ALLERGIES: Coded Allergies: Penicillins (Verified Allergy, Mild, Swelling, 04/19/21) ROS Review of System 14 point ROS conducted with pertinent positives noted above in hPI PHYSICAL EXAM General: Alert, Oriented X3, Cooperative, No acute distress HEENT: Atraumatic Lungs: Clear to auscultation, Normal air movement Heart: Regular rate Abdomen: Soft, No tenderness Extremities: No edema Skin: No significant lesion Neuro: Normal speech, Sensation intact Psych/Mental Status: Mental status NL, Mood NL MUSCULOSKELETAL: Osteoarthritic changes both hands VITALS/I&O VITALS/I&O: Vital Signs Date Time Temp Pulse Resp B/P (MAP) Pulse Ox O2 Delivery O2 Flow Rate FiO2 04/19/21 09:29 98.9 83 16 124/75 (91) 96 Room Air 98.9 LABS Lab: Laboratory Tests Test 04/19/21 06:09 04/19/21 06:50 04/19/21 09:44 04/19/21 09:54 White Blood Count 15.3 x10^3/uL (4.0-11.0) H Red Blood Count 5.81 x10^6/uL (4.30-5.70) H Hemoglobin 16.1 g/dL (13.0-17.5) Hematocrit 48.3 % (39.0-53.0) Mean Corpuscular Volume 83 fL (79-100) Mean Corpuscular Hemoglobin 28 pg (25-35) Mean Corpuscular Hemoglobin Concent 33 g/dL (31-37) Red Cell Distribution Width 15.0 % (11.5-14.5) H Platelet Count 338 x10^3/uL (140-400) Neutrophils (%) (Auto) 79 % (31-73) H Lymphocytes (%) (Auto) 14 % (24-48) L Monocytes (%) (Auto) 6 % (0-9) Eosinophils (%) (Auto) 1 % (0-3) Basophils (%) (Auto) 1 % (0-3) Neutrophils # (Auto) 12.0 x10^3/uL (1.8-7.7) H Lymphocytes # (Auto) 2.1 x10^3/uL (1.0-4.8) Monocytes # (Auto) 0.9 x10^3/uL (0.0-1.1) Eosinophils # (Auto) 0.2 x10^3/uL (0.0-0.7) Basophils # (Auto) 0.1 x10^3/uL (0.0-0.2) Sodium Level 139 mmol/L (136-145) Potassium Level 3.7 mmol/L (3.5-5.1) Chloride Level 104 mmol/L (98-107) Carbon Dioxide Level 20 mmol/L (21-32) L Anion Gap 15 (6-14) H Blood Urea Nitrogen 10 mg/dL (8-26) Creatinine 0.8 mg/dL (0.7-1.3) Estimated GFR (Cockcroft-Gault) 103.2 BUN/Creatinine Ratio 13 (6-20) Glucose Level 89 mg/dL (70-99) Calcium Level 8.6 mg/dL (8.5-10.1) Magnesium Level 2.1 mg/dL (1.8-2.4) Total Bilirubin 0.7 mg/dL (0.2-1.0) Aspartate Amino Transferase (AST) 20 U/L (15-37) Alanine Aminotransferase (ALT) 35 U/L (16-63) Alkaline Phosphatase 132 U/L (46-116) H Troponin I High Sensitivity 8 ng/L (4-75) 8 ng/L (4-75) WL-Ztd-G-Type Natriuretic Peptide 57 pg/mL (0-124) Total Protein 8.3 g/dL (6.4-8.2) H Albumin 3.7 g/dL (3.4-5.0) Albumin/Globulin Ratio 0.8 (1.0-1.7) L Lipase 88 U/L (73-393) Ethyl Alcohol Level 21 mg/dL (0-10) H SARS-CoV-2 Antigen (Rapid) Negative (NEGATIVE) Urine Collection Type Unknown Urine Color Yellow Urine Clarity Clear Urine pH 5.5 (<5.0-8.0) Urine Specific Wright >=1.030 (1.000-1.030) Urine Protein Negative mg/dL (NEG-TRACE) Urine Glucose (UA) Negative mg/dL (NEG) Urine Ketones (Stick) Negative mg/dL (NEG) Urine Blood Negative (NEG) Urine Nitrite Negative (NEG) Urine Bilirubin Negative (NEG) Urine Urobilinogen Dipstick 0.2 mg/dL (0.2 mg/dL) Urine Leukocyte Esterase Negative (NEG) Urine RBC 0 /HPF (0-2) Urine WBC Occ /HPF (0-4) Urine Squamous Epithelial Cells Occ /LPF Urine Bacteria 0 /HPF (0-FEW) Urine Opiates Screen Neg (NEG) Urine Methadone Screen Neg (NEG) Urine Barbiturates Neg (NEG) Urine Phencyclidine Screen Neg (NEG) Urine Amphetamine/Methamphetamine Neg (NEG) Urine Benzodiazepines Screen Neg (NEG) Urine Cocaine Screen Pos (NEG) Urine Cannabinoids Screen Neg (NEG) Urine Ethyl Alcohol Neg (NEG) Laboratory Tests 04/19/21 06:09 Laboratory Tests 04/19/21 06:09 ASSESSMENT/PLAN ASSESSMENT/PLAN 1. Chest pain, atypical; AMI ruled out 2. Hypertension; controlled 3. GERD 4. Leukocytosis 5 . Cocaine abuse; discussed/encouraged cessation Recommendations Lipids ASA Will plan outpatient ischemia evaluation evaluation and followup in our office Okay to discharge from a CV standpoint. ADAM ALEGRE APRN Apr 19, 2021 12:44
--- NOTE | 2021-04-19 13:47 | PDOC1 ---
History and Physical Date of Service: DOS: DATE: 04/19/21 TIME: 13:47 Chief Complaint: Chief Complain: chest pain History of Present Illness: HPI: Patient is a 46 year old male who presents with chest pain which began several hours ago. The pain is left-sided, feels like pressure, radiates to his left shoulder and left upper back. He reports mild shortness of breath. He also describes some sharp pain. He denies pleuritic pain. He denies cough or hemoptysis. He denies lower extremity pain or swelling. He reports mild nausea but no vomiting. He denies abdominal pain. He denies dizziness or diaphoresis. The pain was intermittent but now it is constant for the past couple of hours. He admits to using cocaine earlier today. He snorts cocaine intermittently, he is done this for several years. He reports drinking alcohol on the weekends. He denies any heavy alcohol use. He reports he has history of similar chest pain. He and his significant other indicate that he was told he had a heart attack 3 years ago while living in [place]. He never followed up with a bicycle taxi driver, he was never given medications for this, he reports having no st ents. He does not have a bicycle taxi driver here. He denies recent travel, surgery, hospitalization. He is not vaccinated against COVID. He does report having several days of nonproductive cough and malaise. No reported fever. No reported hemoptysis. Past Medical/Surgical History: PMH/PSH: HTN Allergies: Allergies: Coded Allergies: Penicillins (Verified Allergy, Mild, Swelling, 04/19/21) Family History: Family History: HTN Social History: Social History: Daily smoker, denies alcohol drug use Current Medications: Current Medications Current Medications Lorazepam (Ativan Inj) 1 mg 1X ONCE IVP Last administered on 04/19/21at 08:02; Start 04/19/21 at 06:15; Stop 04/19/21 at 06:16; Status DC Aspirin (Aspirin Chewable) 324 mg 1X ONCE PO Last administered on 04/19/21at 08:01; Start 04/19/21 at 06:15; Stop 04/19/21 at 06:16; Status DC Ondansetron HCl (Zofran) 4 mg 1X ONCE IVP Last administered on 04/19/21at 08:01; Start 04/19/21 at 06:15; Stop 04/19/21 at 06:16; Status DC Nitroglycerin (Nitrostat) 0.4 mg PRN Q5MIN PRN SL CHEST PAIN Last administered on 04/19/21at 08:02; Start 04/19/21 at 06:15 Sodium Chloride 1,000 ml @ 1,000 mls/hr 1X ONCE IV Last administered on 04/19/21at 08:01; Start 04/19/21 at 06:15; Stop 04/19/21 at 07:14; Status DC Iohexol (Omnipaque 350 Mg/ml) 90 ml 1X ONCE IV Last administered on 04/19/21at 08:04; Start 04/19/21 at 07:45; Stop 04/19/21 at 07:46; Status DC Info (CONTRAST GIVEN -- Rx MONITORING) 1 each PRN DAILY PRN MC SEE COMMENTS; Start 04/19/21 at 08:00; Stop 04/21/21 at 07:59 Ondansetron HCl (Zofran) 4 mg PRN Q8HRS PRN IVP NAUSEA/VOMITING; Start 04/19/21 at 08:30; Stop 04/20/21 at 08:29 Acetaminophen (Tylenol) 650 mg PRN Q4HRS PRN PO pain or fever; Start 04/19/21 at 08:30 Sodium Chloride 1,000 ml @ 75 mls/hr 1X ONCE IV Last administered on 04/19/21at 09:41; Start 04/19/21 at 08:30; Stop 04/19/21 at 21:49 Aspirin (Ecotrin) 81 mg DAILYWBKFT PO ; Start 04/19/21 at 13:00 Active Scripts Active Erythromycin (Erythromycin Base) 1 Gm Oint...g. 0.25 Juan OD 6XDAY 7 Days Prednisone 20 Mg Tablet 1 Tab PO DAILY 7 Days Anaprox Ds (Naproxen Sodium) 550 Mg Tablet 1 Tab PO BID PRN 15 Days ROS: Review of Systems Review of System Unless noted in HPI 14 point review of systems was negative Physical Exam: Vital Signs: Vital Signs Date Time Temp Pulse Resp B/P (MAP) Pulse Ox O2 Delivery O2 Flow Rate FiO2 04/19/21 09:29 98.9 83 16 124/75 (91) 96 Room Air 98.9 Physcial Exam: GEN: No apparent distress. Alert and oriented HEENT: Normal cephalic, atraumatic, external auditory canals are patent EYES: Extraocular muscles are intact, pupil are equally round and reactive to light and accommodation MUSCULOSKELETAL: Well developed , well nourished, good range of motion ENDOCRINE: No thyromegaly was palpated LYMPHATICS: No cervical chain or axillary nodes were noted HEMATOPOIETIC: No bruising NECK: Supple, no JVD, no thyromegaly was noted LUNGS: Clear to auscultation in all lung landeros without rhonchi or wheezing HEART: RRR, S!, S2 present. Peripheral pulses intact, no obvious murmurs noted ABDOMEN: Soft, nontender. Positive bowel sounds, no organomegaly, normal bowel sounds EXTREMITIES: Without clubbing, cyanosis, or edema. Pedal pulses intact. Negative Homans sign NEUROLOGIC: Normal speech and tone. A&O x 3, moves all extremities, no obvious focal deficits PSYCHIATRIC: Normal affect, normal mood. Stable SKIN: No ulcerations or rashes, good skin turgor, no jaundice VASCULAR: Good capillary refill, neurovascular bundle appears to be intact Labs: Labs: Laboratory Tests Test 04/19/21 06:09 04/19/21 06:50 04/19/21 09:44 04/19/21 09:54 White Blood Count 15.3 x10^3/uL (4.0-11.0) Red Blood Count 5.81 x10^6/uL (4.30-5.70) Hemoglobin 16.1 g/dL (13.0-17.5) Hematocrit 48.3 % (39.0-53.0) Mean Corpuscular Volume 83 fL (79-100) Mean Corpuscular Hemoglobin 28 pg (25-35) Mean Corpuscular Hemoglobin Concent 33 g/dL (31-37) Red Cell Distribution Width 15.0 % (11.5-14.5) Platelet Count 338 x10^3/uL (140-400) Neutrophils (%) (Auto) 79 % (31-73) Lymphocytes (%) (Auto) 14 % (24-48) Monocytes (%) (Auto) 6 % (0-9) Eosinophils (%) (Auto) 1 % (0-3) Basophils (%) (Auto) 1 % (0-3) Neutrophils # (Auto) 12.0 x10^3/uL (1.8-7.7) Lymphocytes # (Auto) 2.1 x10^3/uL (1.0-4.8) Monocytes # (Auto) 0.9 x10^3/uL (0.0-1.1) Eosinophils # (Auto) 0.2 x10^3/uL (0.0-0.7) Basophils # (Auto) 0.1 x10^3/uL (0.0-0.2) Sodium Level 139 mmol/L (136-145) Potassium Level 3.7 mmol/L (3.5-5.1) Chloride Level 104 mmol/L (98-107) Carbon Dioxide Level 20 mmol/L (21-32) Anion Gap 15 (6-14) Blood Urea Nitrogen 10 mg/dL (8-26) Creatinine 0.8 mg/dL (0.7-1.3) Estimated GFR (Cockcroft-Gault) 103.2 BUN/Creatinine Ratio 13 (6-20) Glucose Level 89 mg/dL (70-99) Calcium Level 8.6 mg/dL (8.5-10.1) Magnesium Level 2.1 mg/dL (1.8-2.4) Total Bilirubin 0.7 mg/dL (0.2-1.0) Aspartate Amino Transf (AST/SGOT) 20 U/L (15-37) Alanine Aminotransferase (ALT/SGPT) 35 U/L (16-63) Alkaline Phosphatase 132 U/L (46-116) Troponin I High Sensitivity 8 ng/L (4-75) 8 ng/L (4-75) EX-[id number]-[id number]-Type Natriuretic Peptide 57 pg/mL (0-124) Total Protein 8.3 g/dL (6.4-8.2) Albumin 3.7 g/dL (3.4-5.0) Albumin/Globulin Ratio 0.8 (1.0-1.7) Triglycerides Level 88 mg/dL (0-150) Cholesterol Level 218 mg/dL (0-200) LDL Cholesterol, Calculated 146 mg/dL (0-100) VLDL Cholesterol, Calculated 18 mg/dL (0-40) Non-HDL Cholesterol Calculated 164 mg/dL (0-129) HDL Cholesterol 54 mg/dL (40-60) Cholesterol/HDL Ratio 4.0 Lipase 88 U/L (73-393) Ethyl Alcohol Level 21 mg/dL (0-10) SARS-CoV-2 RNA (JOSE) Negative (Negative) SARS-CoV-2 Antigen (Rapid) Negative (NEGATIVE) Urine Collection Type Unknown Urine Color Yellow Urine Clarity Clear Urine pH 5.5 (<5.0-8.0) Urine Specific Bradley >=1.030 (1.000-1.030) Urine Protein Negative mg/dL (NEG-TRACE) Urine Glucose (UA) Negative mg/dL (NEG) Urine Ketones (Stick) Negative mg/dL (NEG) Urine Blood Negative (NEG) Urine Nitrite Negative (NEG) Urine Bilirubin Negative (NEG) Urine Urobilinogen Dipstick 0.2 mg/dL (0.2 mg/dL) Urine Leukocyte Esterase Negative (NEG) Urine RBC 0 /HPF (0-2) Urine WBC Occ /HPF (0-4) Urine Squamous Epithelial Cells Occ /LPF Urine Bacteria 0 /HPF (0-FEW) Urine Opiates Screen Neg (NEG) Urine Methadone Screen Neg (NEG) Urine Barbiturates Neg (NEG) Urine Phencyclidine Screen Neg (NEG) Urine Amphetamine/Methamphetamine Neg (NEG) Urine Benzodiazepines Screen Neg (NEG) Urine Cocaine Screen Pos (NEG) Urine Cannabinoids Screen Neg (NEG) Urine Ethyl Alcohol Neg (NEG) Laboratory Tests Test 04/19/21 06:09 04/19/21 06:50 04/19/21 09:44 04/19/21 09:54 White Blood Count 15.3 x10^3/uL (4.0-11.0) Red Blood Count 5.81 x10^6/uL (4.30-5.70) Hemoglobin 16.1 g/dL (13.0-17.5) Hematocrit 48.3 % (39.0-53.0) Mean Corpuscular Volume 83 fL (79-100) Mean Corpuscular Hemoglobin 28 pg (25-35) Mean Corpuscular Hemoglobin Concent 33 g/dL (31-37) Red Cell Distribution Width 15.0 % (11.5-14.5) Platelet Count 338 x10^3/uL (140-400) Neutrophils (%) (Auto) 79 % (31-73) Lymphocytes (%) (Auto) 14 % (24-48) Monocytes (%) (Auto) 6 % (0-9) Eosinophils (%) (Auto) 1 % (0-3) Basophils (%) (Auto) 1 % (0-3) Neutrophils # (Auto) 12.0 x10^3/uL (1.8-7.7) Lymphocytes # (Auto) 2.1 x10^3/uL (1.0-4.8) Monocytes # (Auto) 0.9 x10^3/uL (0.0-1.1) Eosinophils # (Auto) 0.2 x10^3/uL (0.0-0.7) Basophils # (Auto) 0.1 x10^3/uL (0.0-0.2) Sodium Level 139 mmol/L (136-145) Potassium Level 3.7 mmol/L (3.5-5.1) Chloride Level 104 mmol/L (98-107) Carbon Dioxide Level 20 mmol/L (21-32) Anion Gap 15 (6-14) Blood Urea Nitrogen 10 mg/dL (8-26) Creatinine 0.8 mg/dL (0.7-1.3) Estimated GFR (Cockcroft-Gault) 103.2 BUN/Creatinine Ratio 13 (6-20) Glucose Level 89 mg/dL (70-99) Calcium Level 8.6 mg/dL (8.5-10.1) Magnesium Level 2.1 mg/dL (1.8-2.4) Total Bilirubin 0.7 mg/dL (0.2-1.0) Aspartate Amino Transf (AST/SGOT) 20 U/L (15-37) Alanine Aminotransferase (ALT/SGPT) 35 U/L (16-63) Alkaline Phosphatase 132 U/L (46-116) Troponin I High Sensitivity 8 ng/L (4-75) 8 ng/L (4-75) [id number]-Type Natriuretic Peptide 57 pg/mL (0-124) Total Protein 8.3 g/dL (6.4-8.2) Albumin 3.7 g/dL (3.4-5.0) Albumin/Globulin Ratio 0.8 (1.0-1.7) Triglycerides Level 88 mg/dL (0-150) Cholesterol Level 218 mg/dL (0-200) LDL Cholesterol, Calculated 146 mg/dL (0-100) VLDL Cholesterol, Calculated 18 mg/dL (0-40) Non-HDL Cholesterol Calculated 164 mg/dL (0-129) HDL Cholesterol 54 mg/dL (40-60) Cholesterol/HDL Ratio 4.0 Lipase 88 U/L (73-393) Ethyl Alcohol Level 21 mg/dL (0-10) SARS-CoV-2 RNA (JOSE) Negative (Negative) SARS-CoV-2 Antigen (Rapid) Negative (NEGATIVE) Urine Collection Type Unknown Urine Color Yellow Urine Clarity Clear Urine pH 5.5 (<5.0-8.0) Urine Specific Bradley >=1.030 (1.000-1.030) Urine Protein Negative mg/dL (NEG-TRACE) Urine Glucose (UA) Negative mg/dL (NEG) Urine Ketones (Stick) Negative mg/dL (NEG) Urine Blood Negative (NEG) Urine Nitrite Negative (NEG) Urine Bilirubin Negative (NEG) Urine Urobilinogen Dipstick 0.2 mg/dL (0.2 mg/dL) Urine Leukocyte Esterase Negative (NEG) Urine RBC 0 /HPF (0-2) Urine WBC Occ /HPF (0-4) Urine Squamous Epithelial Cells Occ /LPF Urine Bacteria 0 /HPF (0-FEW) Urine Opiates Screen Neg (NEG) Urine Methadone Screen Neg (NEG) Urine Barbiturates Neg (NEG) Urine Phencyclidine Screen Neg (NEG) Urine Amphetamine/Methamphetamine Neg (NEG) Urine Benzodiazepines Screen Neg (NEG) Urine Cocaine Screen Pos (NEG) Urine Cannabinoids Screen Neg (NEG) Urine Ethyl Alcohol Neg (NEG) Assessment/Plan Assessment/Plan Chest pain. History of hypertension and possible OK -Presented with 1 day history of chest pain. Recent cocaine use -Lab work-up essentially unremarkable. Normal cardiac enzymes -Cardiology consulted. Follow-up outpatient -We will start patient on aspirin and Lipitor on discharge -Resume home meds otherwise -DVT prophylaxis -Cardiac diet. Justifications for Admission Other Justification PAT PEREZ MD Apr 19, 2021 13:47
[2021-04-19] MEDS: ASPIRIN ENTERIC COATED 81 MG TABLET.DR. PO SCH (15:08)
[2021-04-19] MEDS ORDERED: ATOR40TA59 PO (16:27)
[2021-04-19] MEDS ORDERED: ASPI-886 PO (16:27)
--- NOTE | 2021-04-19 16:43 | PDOC3 ---
[facility]-Discharge Summary Date of Admission: Date of Admission: Apr 19, 2021 Date of Discharge: Date of Discharge: Apr 19, 2021 Admission Diagnosis: Admitting Diagnosis: Chest pain Discharge Diagnosis: Discharge Diagnosis: Same Consults: Consults: Cardiology Hospital Course: Hospital Course: Patient is a 46 year old male who presents with chest pain which began several hours ago. The pain is left-sided, feels like pressure, radiates to his left shoulder and left upper back. He reports mild shortness of breath. He also describes some sharp pain. He denies pleuritic pain. He denies cough or hemoptysis. He denies lower extremity pain or swelling. He reports mild nausea but no vomiting. He denies abdominal pain. He denies dizziness or diaphoresis. The pain was intermittent but now it is constant for the past couple of hours. He admits to using cocaine earlier today. He snorts cocaine intermittently, he is done this for several years. He reports drinking alcohol on the weekends. He denies any heavy alcohol use. He reports he has history of similar chest pain. He and his significant other indicate that he was told he had a heart attack 3 years ago while living in [place]. He never followed up with a senior technical analyst, he was never given medications for this, he reports having no stents. He does not have a senior technical analyst here. He denies recent travel, surgery, hospitalization. He is not vaccinated against COVID. He does report having several days of nonproductive cough and malaise. No reported fever. No reported hemoptysis. Patient evaluated at bedside he was asymptomatic. Lab results pretty unremarkable. Cardiology evaluated. Will discharge home with cardiac follow- up. Disposition: Disposition/Orders: D/C to Home Activity: Activity: Resume previous activity Diet: Diet: Cardiac Medications: Home Meds Active Scripts Atorvastatin Calcium (ATORVASTATIN CALCIUM) 40 Mg Tablet, 1 TAB PO QHS for cad, #90 TAB 0 Refills Prov:PAT PEREZ MD 04/19/21 Aspirin (ASPIRIN EC) 81 Mg Tablet., 81 MG PO DAILYWBKFT for cad for 30 Days, #30 TAB.SR Prov:PAT PEREZ MD 04/19/21 Erythromycin Base (Erythromycin) 1 Gm Oint...g., 0.25 GENTRY OD 6XDAY for corneal abrasion for 7 Days, #1 MISC Prov:CASTILLO CONROY CODING ANALYST 03/26/21 Naproxen Sodium (ANAPROX DS) 550 Mg Tablet, 1 TAB PO BID PRN for PAIN for 15 Days, #30 TAB 0 Refills Prov:MERRILL AVENDAÑO DO 07/22/20 Discontinued Scripts Prednisone (PREDNISONE) 20 Mg Tablet, 1 TAB PO DAILY for 7 Days, #7 TAB Prov:MERRILL AVENDAÑO DO 07/22/20 Scheduled Aspirin (Aspirin Ec), 81 MG PO DAILYWBKFT Atorvastatin Calcium (Atorvastatin Calcium), 1 TAB PO QHS Erythromycin Base (Erythromycin), 0.25 GENTRY OD 6XDAY Scheduled PRN Naproxen Sodium (Anaprox Ds), 1 TAB PO BID PRN for PAIN Discontinued Medications Prednisone (Prednisone), 1 TAB PO DAILY Justicifation of Admission Dx: Justifications for Admission: Justification of Admission Dx: Yes (chest pain) PAT PEREZ MD Apr 19, 2021 16:43
[2021-04-20] MEDS: ASPIRIN ENTERIC COATED 81 MG TABLET.DR. PO SCH (07:57)
[2021-04-20 09:10] VITALS: BP 138/88
== END 2021-04-20 09:12 | disposition home or self-care (01) ==
LOC: ER 05:49 → ED HOLD 08:28
PROVIDERS: ADMIT Student in an Organized Health Care Education/Training Program; ATTEND Student in an Organized Health Care Education/Training Program
DX: R07.89 Other chest pain (principal); Z20.822 Contact with and (suspected) exposure to COVID-19; I10 Essential (primary) hypertension; K21.9 Gastro-esophageal reflux disease without esophagitis; D72.829 Elevated white blood cell count, unspecified; F14.10 Cocaine abuse, uncomplicated; K76.0 Fatty (change of) liver, not elsewhere classified; I25.2 Old myocardial infarction; F17.210 Nicotine dependence, cigarettes, uncomplicated; Z79.82 Long term (current) use of aspirin; Z79.899 Other long term (current) drug therapy
CPT/HCPCS: 36415; 71045; 71275; 80053; 80061; 80307; 81001; 83690; 83735; 83880; 84484; 85025; 87426; 96361; 96374; 96375; 99285; G0378; G0480; J2060; J2405; J7030; Q9967; U0003; U0005; G0379